=== PATIENT | female | born 1980 | race American Indian/Alaskan Native ===

== ENCOUNTER 2016-09-12 21:18 | Emergency (ER) | payer MEDICAID ==
[2016-09-12 23:06] LABS: Basophils % (Auto) 2.3 % (0.0-1.8); Eosinophils % (Auto) 7.3 % (0.0-4.3); Mean Corpuscular HGB Conc 29 % (30-34); Platelet Count 264 K/mm3 (140-440); Red Blood Count 5.23 M/mm3 (3.65-5.03)
[2016-09-12 23:09] LABS: Hematocrit 33.9 % (30.3-42.9); Hemoglobin 9.6 gm/dl (10.1-14.3)
[2016-09-12 23:10] LABS: Mean Corpuscular Hemoglobin 18 pg (28-32); Mean Corpuscular Volume 65 fl (79-97); Red Cell Distribution Width 20.9 % (13.2-15.2)
[2016-09-12 23:21] LABS: Anion Gap 17 mmol/L; BUN/Creatinine Ratio 16.15; Blood Urea Nitrogen 21 mg/dL (7-17); Calcium 8.8 mg/dL (8.4-10.2); Carbon Dioxide 25 mmol/L (22-30); Chloride 103.7 mmol/L (98-107); Glucose 101 mg/dL (65-100); Potassium 4.4 mmol/L (3.6-5.0); Sodium 141 mmol/L (137-145)
[2016-09-13] LABS: Bilirubin,Urine NEG (Negative); Blood,Urine NEG (Negative); Ketones,Urine NEG (Negative); Leukocyte Esterase,Urine NEG (Negative); Mucus,Urine FEW /HPF; Nitrite,Urine NEG (Negative); Urobilinogen,Urine < 2.0 mg/dL (<2.0)
[2016-09-13] MEDS ORDERED: TYLENOL ONE (01:54)
[2016-09-13] MEDS ORDERED: CATAPRES ONE (01:54)
[2016-09-13] MEDS ORDERED: TYLENOL PO ONE (02:00)
[2016-09-13] MEDS ORDERED: CATAPRES PO ONE (02:02)
--- NOTE | 2016-09-13 04:05 | Emergency Department Report ---
ED Chest Pain HPI - General Chief Complaint: Chest Pain Stated Complaint: CHEST PAIN Time Seen by Provider: 09/13/16 03:59 Source: patient Mode of arrival: Ambulatory Limitations: No Limitations - History of Present Illness Initial Comments: This is a pleasant 36-year-old female who is here to get her medications refilled. She states she's had increased pedal edema. She states that she's had weight gain as well. She has been told in the past that she has heart failure. She is concerned that she is putting out a lot of water weight. She does have a history of lap band. She reports she has lost weight in the internal from her lap band. She states that she started a new job in a couple weeks and will have access to healthcare again after she Job. She Reports Currently However Not Having Access to a Physician Due To Lack of Insurance. Patient Describes Occasional Chest Pains She Doesn't Currently Have Chest Pain. She Denies Any Specific Shortness of Breath. She Does Report However She Does Get Dyspneic with Exertion. She States This Is Nothing New though. Severity scale (0 -10): 5 - Related Data Previous Rx's Medication Instructions Recorded Last Taken Type Carvedilol [Coreg] 6.25 mg PO BID #60 tablet 09/13/16 Unknown Rx Hydrochlorothiazide [HCTZ] 50 mg PO QDAY #30 capsule 09/13/16 Unknown Rx Losartan [Cozaar] 100 mg PO QDAY #30 tablet 09/13/16 Unknown Rx Allergies Allergy/AdvReac Type Severity Reaction Status Date / Time prednisone Allergy Angioedema Verified 05/20/16 13:20 PINEDA score - Pineda Score Age > 65: (0) No Aspirin use within the Past 7 Days: (0) No 3 or more CAD Risk Factors: (0) No 2 or more Angina events in past 24 hrs: (0) No Known CAD with more than 50% Stenosis: (0) No Elevated Cardiac Markers: (0) No ST Deviation Greater than 0.5mm: (0) No PINEDA Score: 0 ED Review of Systems ROS: Stated complaint: CHEST PAIN Other details as noted in HPI Comment: All other systems reviewed and negative Constitutional: other (weight gain). denies: chills, fever Eyes: denies: eye pain, eye discharge, vision change ENT: denies: ear pain, throat pain Respiratory: denies: cough, shortness of breath, wheezing Cardiovascular: chest pain. denies: palpitations Endocrine: no symptoms reported Gastrointestinal: denies: abdominal pain, nausea, diarrhea Genitourinary: denies: urgency, dysuria, discharge Musculoskeletal: other (pedal edema). denies: back pain, joint swelling, arthralgia Skin: denies: rash, lesions Neurological: denies: headache, weakness, paresthesias Psychiatric: denies: anxiety, depression Hematological/Lymphatic: denies: easy bleeding, easy bruising ED Past Medical Hx - Past Medical History Hx Hypertension: Yes Additional medical history: Cardiomyopathy, Bronchitis - Surgical History Additional Surgical History: Lap Band - Social History Smoking Status: Former Smoker Substance Use Type: None - Medications Home Medications: Home Medications Medication Instructions Recorded Confirmed Last Taken Type Carvedilol [Coreg] 6.25 mg PO BID #60 tablet 09/13/16 Unknown Rx Hydrochlorothiazide [HCTZ] 50 mg PO QDAY #30 capsule 09/13/16 Unknown Rx Losartan [Cozaar] 100 mg PO QDAY #30 tablet 09/13/16 Unknown Rx ED Physical Exam - General Limitations: No Limitations General appearance: alert, in no apparent distress, obese - Head Head exam: Present: atraumatic, normocephalic - Eye Eye exam: Present: normal appearance, EOMI. Absent: scleral icterus - ENT ENT exam: Present: normal exam, normal orophraynx, mucous membranes moist - Neck Neck exam: Present: normal inspection, other (no jvd). Absent: tenderness, lymphadenopathy - Respiratory Respiratory exam: Present: normal lung sounds bilaterally. Absent: respiratory distress, wheezes, rales - Cardiovascular Cardiovascular Exam: Present: regular rate, normal rhythm. Absent: systolic murmur, diastolic murmur, rubs, gallop - GI/Abdominal GI/Abdominal exam: Present: soft, normal bowel sounds. Absent: tenderness, guarding - Extremities Exam Extremities exam: Present: normal inspection, pedal edema (1+ bilat. Equal distal pedal pulses bilat). Absent: tenderness, calf tenderness - Back Exam Back exam: Present: normal inspection. Absent: CVA tenderness (R), CVA tenderness (L) - Neurological Exam Neurological exam: Present: alert, oriented X3, normal gait - Psychiatric Psychiatric exam: Present: normal affect, normal mood - Skin Skin exam: Present: warm, dry, intact, normal color. Absent: rash ED Course Vital Signs 09/12/16 09/12/16 09/13/16 21:22 22:13 02:00 Temperature 97.4 F L 97.4 F L Pulse Rate 102 H 102 H 102 H Respiratory 22 22 Rate Blood Pressure 175/128 174/128 Blood Pressure 174/128 [Right] O2 Sat by Pulse 98 98 Oximetry 09/13/16 09/13/16 03:52 04:00 Temperature Pulse Rate 91 H 97 H Respiratory 22 16 Rate Blood Pressure 151/116 164/122 Blood Pressure [Right] O2 Sat by Pulse 100 Oximetry - Reevaluation(s) Reevaluation #1: 09/13/16 04:00 ECG at 2126 with normal sinus rhythm at 100 bpm with a normal TX and QRS. There is mild prolongation of QT of 497 ms. Dermal axis is noted nonspecific ST changes are noted otherwise unremarkable. Reevaluation #2: 09/13/16 05:30 This is a pleasant individual. I didn't evaluate her chest x-ray. There does appear to be cardiomegaly. No vascular congestion is appreciated. I feel she will benefit greatly from being on a diuretic. I did encourage her to increase her thyroid hydrochlorothiazide. She currently is not on Lasix. This is likely a good idea given her creatinine is slightly bumped. I did write for her other medications as well including a beta shay, carvedilol. Her ECG is noted. It is unremarkable. Enzymes here are noted and are negative. I do not have a great suspicion from a cardiac standpoint as far as ischemia is his presentation here today. She clearly seems to be presenting with a desire to get her medications and to get back on track rather than due to this specific chest pains. Safe for home. ED Medical Decision Making - Lab Data Result diagrams: 09/12/16 22:48 09/12/16 22:48 Critical care attestation.: If time is entered above; I have spent that time in minutes in the direct care of this critically ill patient, excluding procedure time. ED Disposition Clinical Impression: Renal insufficiency, Medication refill Congestive heart failure Qualifiers: Congestive heart failure type: systolic Congestive heart failure chronicity: acute on chronic Qualified Code(s): I50.23 - Acute on chronic systolic ( congestive) heart failure HTN (hypertension) Qualifiers: Hypertension type: essential hypertension Qualified Code(s): I10 - Essential ( primary) hypertension Disposition: DISCHARGED TO HOME OR SELFCARE Is pt being admited?: No Does the pt Need Aspirin: No Condition: Stable Instructions: Heart Failure (ED), Hypertension (ED) Prescriptions: Carvedilol [Coreg] 6.25 mg PO BID #60 tablet Hydrochlorothiazide [HCTZ] 50 mg PO QDAY #30 capsule Losartan [Cozaar] 100 mg PO QDAY #30 tablet Referrals: NELY MOY MD [Staff Physician] - 3-5 Days [facility] [Provider Group] - 3-5 Days [facility] [Provider Group] - 3-5 Days Time of Disposition: 04:11
[2016-09-13] MEDS ORDERED: LASIX IV ONE (04:08)
[2016-09-13 04:09] VITALS: BP 164/122
--- NOTE | 2016-09-13 09:50 | XRay Report ---
CHEST 2 VIEWS INDICATION: Shortness of breath, cough, edema. COMPARISON: 05/20/2016 FINDINGS: PA and lateral chest radiographs again demonstrate mild to moderate cardiomegaly and slight fluid or thickening along the fissures. No large pleural effusions or CHF however. Stable bones. CONCLUSION: Cardiomegaly again noted, as described. Thank you for the opportunity to participate in this patient's care.
== END 2016-09-13 04:45 | disposition home or self-care (01) ==
LOC: ED 21:18
DX: N28.9 Disorder of kidney and ureter, unspecified (principal); Z76.0 Encounter for issue of repeat prescription; I50.23 Acute on chronic systolic (congestive) heart failure; I10 Essential (primary) hypertension; Z87.891 Personal history of nicotine dependence; Z88.8 Allergy status to other drugs, medicaments and biological substances
CPT/HCPCS: 36415; 71020; 80048; 81001; 81025; 83880; 84484; 85025; 93005; 93010; 96374; 99285; J1940

== ENCOUNTER 2016-11-15 22:57 | Emergency (ER) | payer MEDICAID ==
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
[2016-11-16 02:38] VITALS: BP 153/106
== END 2016-11-16 02:38 | disposition home or self-care (01) ==
LOC: ED 22:57
DX: M25.511 Pain in right shoulder (principal); M54.2 Cervicalgia; I10 Essential (primary) hypertension; E66.9 Obesity, unspecified; Z88.8 Allergy status to other drugs, medicaments and biological substances; V89.2XXA Person injured in unspecified motor-vehicle accident, traffic, initial encounter; Y93.9 Activity, unspecified; Y99.9 Unspecified external cause status; Y92.410 Unspecified street and highway as the place of occurrence of the external cause
CPT/HCPCS: 72125

== ENCOUNTER 2018-09-12 14:07 | Inpatient (IN) | payer MEDICAID ==
--- NOTE | 2018-09-12 14:40 | Emergency Department Report ---
Chief Complaint: Dyspnea/Respdistress Stated Complaint: SOB/SWOLLEN/OUT OF MEDS Time Seen by Provider: 09/12/18 14:40 - HPI History of Present Illness: HX CM P EF UNKNOWN NOT IN EMR OUT OF MEDS NOW WITH SOB AND SWELLING MSE COMPLETED MSE screening note: Focused history and physical exam performed. Due to findings the following was ordered: ED Disposition for MSE Condition: Stable
[2018-09-12 15:25] LABS: Basophils # (Auto) 0.1 K/mm3 (0.0-0.1); Basophils % (Auto) 1.2 % (0.0-1.8); Eosinophils # (Auto) 0.2 K/mm3 (0.0-0.4); Eosinophils % (Auto) 3.1 % (0.0-4.3); Lymphocytes # (Auto) 1.4 K/mm3 (1.2-5.4); Lymphocytes % (Auto) 23.1 % (13.4-35.0); Mean Corpuscular HGB Conc 29 % (30-34); Monocytes # (Auto) 0.4 K/mm3 (0.0-0.8); Monocytes % (Auto) 7.3 % (0.0-7.3); Platelet Count 355 K/mm3 (140-440); Red Blood Count 4.74 M/mm3 (3.65-5.03)
[2018-09-12 15:27] LABS: Hematocrit 29.6 % (30.3-42.9); Hemoglobin 8.5 gm/dl (10.1-14.3); Mean Corpuscular Volume 63 fl (79-97); Red Cell Distribution Width 21.9 % (13.2-15.2)
[2018-09-12 15:45] LABS: Alanine Aminotransferase 23 units/L (7-56); Albumin 3.6 g/dL (3.9-5); BUN/Creatinine Ratio 14; Blood Urea Nitrogen 17 mg/dL (7-17); Calcium 8.7 mg/dL (8.4-10.2); Hemolysis Index 0
[2018-09-12] MEDS ORDERED: LASIX IV ONE (16:41)
[2018-09-12] MEDS ORDERED: NITRO-BID 2% TP ONE (16:41)
--- NOTE | 2018-09-12 16:47 | Emergency Department Report ---
ED Shortness of Breath HPI - General Chief Complaint: Dyspnea/Respdistress Stated Complaint: SOB/SWOLLEN/OUT OF MEDS Time Seen by Provider: 09/12/18 14:40 Source: patient Mode of arrival: Ambulatory Limitations: No Limitations - History of Present Illness Initial Comments: Patient is a 38-year-old Female with a past history of cardiomyopathy (medically controlled with antihypertensives for the past 8 years) and hypertension who is presenting with shortness of breath for the last 2 weeks. Patient says she is short of breath with lying flat as well as exertion. Patient states that this is progressively worsening over the last 2 weeks. Patient also is complaining of some bilateral lower extremity swelling and abdominal distention as well. Patient describes some chest discomfort that she states is tight sensation which is constant. Patient's chest discomfort is worse with exertion as well. Patient denies any cough cold congestion fevers chills nausea vomiting at this time. patient ran out of her medications 2-3 weeks ago. - Related Data Previous Rx's Medication Instructions Recorded Last Taken Type Carvedilol [Coreg] 6.25 mg PO BID #60 tablet 11/16/16 Unknown Rx Cyclobenzaprine [Flexeril] 10 mg PO TID PRN #12 tablet 11/16/16 Unknown Rx Losartan [Cozaar] 100 mg PO QDAY #30 tablet 11/16/16 Unknown Rx Naproxen [Naprosyn TAB] 500 mg PO BID PRN #20 tablet 11/16/16 Unknown Rx hydroCHLOROthiazide [HCTZ] 50 mg PO QDAY #30 capsule 11/16/16 Unknown Rx ALBUTEROL Inhaler(NF) [VENTOLIN 2 puff IH Q4H PRN #1 inha 04/03/18 Unknown Rx Inhaler(NF)] Azithromycin 250 mg PO DAILY #6 tablet 04/03/18 Unknown Rx Benzonatate [Tessalon Perles] 100 mg PO Q8HR PRN #30 capsule 04/03/18 Unknown Rx Carvedilol 6.25 mg PO BID #60 tablet 04/03/18 Unknown Rx Dexamethasone [Decadron] 4 mg PO BID #6 tablet 04/03/18 Unknown Rx Ibuprofen 800 mg PO TID PRN #30 tablet 04/03/18 Unknown Rx Losartan [Cozaar] 100 mg PO QDAY #30 tablet 04/03/18 Unknown Rx hydroCHLOROthiazide [HCTZ] 50 mg PO DAILY #60 tablet 04/03/18 Unknown Rx Allergies Allergy/AdvReac Type Severity Reaction Status Date / Time prednisone Allergy Angioedema Verified 09/12/18 14:41 ED Review of Systems ROS: Stated complaint: SOB/SWOLLEN/OUT OF MEDS Other details as noted in HPI Comment: All other systems reviewed and negative ED Past Medical Hx - Past Medical History Previous Medical History?: Yes Hx Hypertension: Yes Additional medical history: Cardiomyopathy, Bronchitis. Obesity - Surgical History Past Surgical History?: Yes Additional Surgical History: Lap Band. Breast Reduction - Social History Smoking Status: Never Smoker Substance Use Type: None - Medications Home Medications: Home Medications Medication Instructions Recorded Confirmed Last Taken Type Carvedilol [Coreg] 6.25 mg PO BID #60 tablet 11/16/16 Unknown Rx Cyclobenzaprine [Flexeril] 10 mg PO TID PRN #12 tablet 11/16/16 Unknown Rx Losartan [Cozaar] 100 mg PO QDAY #30 tablet 11/16/16 Unknown Rx Naproxen [Naprosyn TAB] 500 mg PO BID PRN #20 tablet 11/16/16 Unknown Rx hydroCHLOROthiazide [HCTZ] 50 mg PO QDAY #30 capsule 11/16/16 Unknown Rx ALBUTEROL Inhaler(NF) [VENTOLIN 2 puff IH Q4H PRN #1 inha 04/03/18 Unknown Rx Inhaler(NF)] Azithromycin 250 mg PO DAILY #6 tablet 04/03/18 Unknown Rx Benzonatate [Tessalon Perles] 100 mg PO Q8HR PRN #30 capsule 04/03/18 Unknown Rx Carvedilol 6.25 mg PO BID #60 tablet 04/03/18 Unknown Rx Dexamethasone [Decadron] 4 mg PO BID #6 tablet 04/03/18 Unknown Rx Ibuprofen 800 mg PO TID PRN #30 tablet 04/03/18 Unknown Rx Losartan [Cozaar] 100 mg PO QDAY #30 tablet 04/03/18 Unknown Rx hydroCHLOROthiazide [HCTZ] 50 mg PO DAILY #60 tablet 04/03/18 Unknown Rx ED Physical Exam - General Limitations: No Limitations General appearance: alert, in no apparent distress - Head Head exam: Present: atraumatic, normocephalic - Eye Eye exam: Present: normal appearance - ENT ENT exam: Present: mucous membranes moist - Neck Neck exam: Present: normal inspection - Respiratory Respiratory exam: Present: normal lung sounds bilaterally, rales. Absent: respiratory distress, wheezes, rhonchi, stridor - Cardiovascular Cardiovascular Exam: Present: regular rate, normal rhythm. Absent: systolic murmur, diastolic murmur, rubs, gallop - GI/Abdominal GI/Abdominal exam: Present: soft, distended, normal bowel sounds. Absent: tenderness, guarding, rebound, rigid - Extremities Exam Extremities exam: Present: normal inspection, other (3+ bilateral lower extremity edema.) - Back Exam Back exam: Present: normal inspection - Neurological Exam Neurological exam: Present: alert, oriented X3 - Psychiatric Psychiatric exam: Present: normal affect, normal mood - Skin Skin exam: Present: warm, dry, intact, normal color. Absent: rash ED Course Vital Signs 09/12/18 14:38 Temperature 98.6 F Pulse Rate 98 H Respiratory 22 Rate Blood Pressure 174/123 O2 Sat by Pulse 99 Oximetry ED Medical Decision Making - Lab Data Result diagrams: 09/12/18 15:04 09/12/18 15:04 Lab Results 09/12/18 09/12/18 09/12/18 Range/Units 15:04 15:04 15:04 WBC 6.0 (4.5-11.0) K/mm3 RBC 4.74 (3.65-5.03) M/mm3 Hgb 8.5 L (10.1-14.3) gm/dl Hct 29.6 L (30.3-42.9) % MCV 63 L (79-97) fl MCH 18 L (28-32) pg MCHC 29 L (30-34) % RDW 21.9 H (13.2-15.2) % Plt Count 355 (140-440) K/mm3 Lymph % (Auto) 23.1 (13.4-35.0) % [place] % (Auto) 7.3 (0.0-7.3) % Eos % (Auto) 3.1 (0.0-4.3) % Baso % (Auto) 1.2 (0.0-1.8) % Lymph # 1.4 (1.2-5.4) K/mm3 [place] # 0.4 (0.0-0.8) K/mm3 Eos # 0.2 (0.0-0.4) K/mm3 Baso # 0.1 (0.0-0.1) K/mm3 Seg Neutrophils % 65.3 (40.0-70.0) % Seg Neutrophils # 3.9 (1.8-7.7) K/mm3 Sodium 140 (137-145) mmol/L Potassium 4.1 (3.6-5.0) mmol/L Chloride 107.1 H (98-107) mmol/L Carbon Dioxide 24 (22-30) mmol/L Anion Gap 13 mmol/L BUN 17 (7-17) mg/dL Creatinine 1.2 (0.7-1.2) mg/dL Estimated GFR > 60 ml/min BUN/Creatinine Ratio 14 % Glucose 102 H (65-100) mg/dL Calcium 8.7 (8.4-10.2) mg/dL Total Bilirubin 0.40 (0.1-1.2) mg/dL AST 20 (5-40) units/L ALT 23 (7-56) units/L Alkaline Phosphatase 44 (35-129) units/L Troponin T < 0.010 (0.00-0.029) ng/mL NT-Pro-B Natriuret Pep 2083 H (0-450) pg/mL Total Protein 6.5 (6.3-8.2) g/dL Albumin 3.6 L (3.9-5) g/dL Albumin/Globulin Ratio 1.2 % - EKG Data -: EKG Interpreted by Nh - EKG Data 09/12/18 16:44 EKG shows a sinus rhythm rate of 96 axis is normal intervals and normal there is evidence of LVH. There is no ST elevation or depressions present. Time of interpretation 1500 - Medical Decision Making Patient is a 38-year-old [place] female with a past history of cardiomyopathy that has been well-controlled for the last 8 years on antihypertensive medications was presented with a exacerbation of her cardiomyopathy. Patient's with rails and shortness of breath with exertion. Patient's blood pressures elevated at this time. Patient was given nitro paste for her chest discomfort. Troponin is negative. BNP is elevated at greater than 2000. Patient given 40 of Lasix and the patient will be admitted to the hospitalist service at this time. Critical care attestation.: If time is entered above; I have spent that time in minutes in the direct care of this critically ill patient, excluding procedure time. ED Disposition Clinical Impression: Hypertensive emergency CHF exacerbation Qualifiers: Heart failure type: unspecified Qualified Code(s): I50.9 - Heart failure, unspecified Chest pain Qualifiers: Chest pain type: unspecified Qualified Code(s): R07.9 - Chest pain, unspecified Disposition: OP ADMIT IP TO THIS HOSP Is pt being admited?: Yes Does the pt Need Aspirin: No Condition: Stable Time of Disposition: 16:49
[2018-09-12] MEDS ORDERED: ASPIRIN PO ONE (16:49)
--- NOTE | 2018-09-12 17:32 | History and Physical Report ---
History of Present Illness Chief complaint: Im short of breath, and I ran out of my heart pills. History of present illness: 38 YO Female with MO, HTN, Cardiomyopathy, Bronchitis presents to ED for evaluation. Pt states that she has experienced shortness of breath over the past 2 weeks, with progressively worsening symptoms over the same time frame. Pt acknowledges Orthopnea/PND, Decreased exercise tolerance, lower extremitiy edema, Dypsnea on exertion, and dypsnea at rest. Pt also acknowledges medication noncompliance over the past 2 weeks. Pt also acknowledges feeling depressed, helpless, and hopeless. Pt is tearful but consolable. Pt denies SI/HI or Plan. Pt acknowledges feeling frustrated with her health. Pt transported to [facility] ED via private vehicle. Pt seen and evaluated in ED and found to have symptoms consistent with CHF, Depression, and Symptomatic Anemia. Cardiology consulted in ED. Pt admitted to telemetry and initiated on CHF protocol. No prior admissions for review. All listed medication reconciled at time of admission. Past History Past Medical History: hypertension, other (MO, Cardiomyopathy, Bronchitis) Past Surgical History: bowel surgery, Other (Breast reduction) Social history: single. denies: smoking, alcohol abuse, prescription drug abuse Family history: hypertension Medications and Allergies Allergies Allergy/AdvReac Type Severity Reaction Status Date / Time prednisone Allergy Angioedema Verified 09/12/18 14:41 Home Medications Medication Instructions Recorded Confirmed Last Taken Type Carvedilol [Coreg] 6.25 mg PO BID #60 tablet 11/16/16 Unknown Rx Cyclobenzaprine [Flexeril] 10 mg PO TID PRN #12 tablet 11/16/16 Unknown Rx Losartan [Cozaar] 100 mg PO QDAY #30 tablet 11/16/16 Unknown Rx Naproxen [Naprosyn TAB] 500 mg PO BID PRN #20 tablet 11/16/16 Unknown Rx hydroCHLOROthiazide [HCTZ] 50 mg PO QDAY #30 capsule 11/16/16 Unknown Rx ALBUTEROL Inhaler(NF) [VENTOLIN 2 puff IH Q4H PRN #1 inha 04/03/18 Unknown Rx Inhaler(NF)] Azithromycin 250 mg PO DAILY #6 tablet 04/03/18 Unknown Rx Benzonatate [Tessalon Perles] 100 mg PO Q8HR PRN #30 capsule 04/03/18 Unknown Rx Carvedilol 6.25 mg PO BID #60 tablet 04/03/18 Unknown Rx Dexamethasone [Decadron] 4 mg PO BID #6 tablet 04/03/18 Unknown Rx Ibuprofen 800 mg PO TID PRN #30 tablet 04/03/18 Unknown Rx Losartan [Cozaar] 100 mg PO QDAY #30 tablet 04/03/18 Unknown Rx hydroCHLOROthiazide [HCTZ] 50 mg PO DAILY #60 tablet 04/03/18 Unknown Rx Review of Systems Constitutional: no weight loss, no weight gain, no fever, no chills Ears, nose, mouth and throat: no ear pain, no ear discharge, no tinnitis, no decreased hearing, no nose pain Cardiovascular: orthopnea, shortness of breath, dyspnea on exertion, paroxysmal nocturnal dyspnea, leg edema, decreased exercise tolerance, no chest pain, no palpitations, no rapid/irregular heart beat Respiratory: no cough, no cough with sputum, no excessive sputum, no hemoptysis Gastrointestinal: no nausea, no vomiting, no diarrhea, no constipation, no hematemesis Genitourinary Female: no pelvic pain, no flank pain, no menorrhagia, no dysuria, no urinary frequency Rectal: no pain, no incontinence, no bleeding Musculoskeletal: no neck stiffness, no neck pain, no shooting arm pain, no arm numbness/tingling, no low back pain, no shooting leg pain Integumentary: no rash, no pruritis, no redness, no sores, no wounds Neurological: no paralysis, no weakness, no parathesias, no numbness, no tingling, no seizures Psychiatric: depression, hopelessness, mood swings, no suicidal ideation Endocrine: no cold intolerance, no heat intolerance, no polyphagia, no excessive thirst, no polydipsia, no polyuria, no nocturia, no weight change Hematologic/Lymphatic: no easy bleeding Allergic/Immunologic: no urticaria, no allergic rhinitis, no wheezing Exam - Constitutional Vitals: Temp Pulse Resp BP Pulse Ox 98.6 F 94 H 22 151/105 99 09/12/18 14:38 09/12/18 16:52 09/12/18 14:38 09/12/18 16:52 09/12/18 14:38 General appearance: Present: mild distress, obese - EENT Eyes: Present: PERRL ENT: hearing intact, clear oral mucosa - Neck Neck: Present: supple, normal ROM - Respiratory Respiratory effort: normal Respiratory: bilateral: CTA - Cardiovascular Heart Sounds: Present: S1 & S2. Absent: rub, click - Extremities Extremities: pulses symmetrical, No edema Peripheral Pulses: within normal limits - Abdominal General gastrointestinal: Present: soft, non-tender, non-distended, normal bowel sounds Female genitourinary: Present: normal - Integumentary Integumentary: Present: clear, warm, dry - Musculoskeletal Musculoskeletal: gait normal, strength equal bilaterally - Psychiatric Psychiatric: appropriate mood/affect, intact judgment & insight, memory intact, depressed - Neurologic Neurologic: CNII-XII intact, moves all extremities, gait normal Results - Labs CBC & Chem 7: 09/12/18 15:04 09/12/18 15:04 Labs: Abnormal lab results 09/12/18 09/12/18 09/12/18 Range/Units 15:04 15:04 15:04 Hgb 8.5 L (10.1-14.3) gm/dl Hct 29.6 L (30.3-42.9) % MCV 63 L (79-97) fl MCH 18 L (28-32) pg MCHC 29 L (30-34) % RDW 21.9 H (13.2-15.2) % Chloride 107.1 H (98-107) mmol/L Glucose 102 H (65-100) mg/dL NT-Pro-B Natriuret Pep 2083 H (0-450) pg/mL Albumin 3.6 L (3.9-5) g/dL Assessment and Plan - Patient Problems (1) CHF exacerbation Current Visit: Yes Status: Acute Qualifiers: Heart failure type: systolic Qualified Code(s): I50.23 - Acute on chronic systolic (congestive) heart failure Plan to address problem: CHF Protocol: Admit to telemetry, Strict I/O, daily weight, monitor uop q shift, Cardiology consulted in ED, BNP, Echo, thyroid panel, magnesium level. (2) Iron deficiency anemia Current Visit: Yes Status: Acute Qualifiers: Iron deficiency anemia type: unspecified iron deficiency Qualified Code(s): D50.9 - Iron deficiency anemia, unspecified Plan to address problem: Iron replacement therapy, Bowel regimen for constipation, supportive care. Pt counseled regarding medication compliance. (3) Depression Current Visit: Yes Status: Acute Qualifiers: Depression Type: unspecified Qualified Code(s): F32.9 - Major depressive disorder, single episode, unspecified Plan to address problem: Mental health consulted. Pt denies SI/HI or plan to harm herself or others. (4) HTN (hypertension) Current Visit: Yes Status: Acute Qualifiers: Hypertension type: essential hypertension Qualified Code(s): I10 - Essential (primary) hypertension Plan to address problem: Monitor BP q shift, resume prehosptial therapy. (5) DVT prophylaxis Current Visit: Yes Status: Acute Plan to address problem: SCD to BLE while in bed. Prophylactic lovenox
[2018-09-12] MEDS ORDERED: NAPROSYN PO PRN (17:34)
[2018-09-12] MEDS ORDERED: TESSALON PERLES PO PRN (17:34)
[2018-09-12] MEDS ORDERED: PROVENTIL IH PRN (17:36)
[2018-09-12] MEDS ORDERED: ZOFRAN IV PRN (17:36)
[2018-09-12] MEDS ORDERED: TYLENOL PO PRN (17:36)
[2018-09-12] MEDS ORDERED: SODIUM CHLORIDE FLUSH SYRINGE 10 ML IV PRN (17:36)
[2018-09-12] MEDS ORDERED: LASIX IV SCH (18:00)
[2018-09-12] MEDS: SENOKOT S PO ONE ×2 (18:43→21:42)
[2018-09-12] MEDS: FEOSOL PO SCH ×2 (18:44→22:01)
[2018-09-12] MEDS ORDERED: HCTZ ONE (18:56)
[2018-09-12] MEDS ORDERED: ZOFRAN ONE (19:00)
[2018-09-12 19:02] LABS: Free T4 (Free Thyroxine) 1.43 ng/dL (0.76-1.46)
[2018-09-12] MEDS: HCTZ PO SCH (19:02)
--- NOTE | 2018-09-12 19:06 | XRay Report ---
PROCEDURE: XR CHEST ROUTINE 2V TECHNIQUE: PA and lateral radiographs of the chest obtained. HISTORY: Dyspnea COMPARISONS: 04/03/2018. FINDINGS: Heart is mildly enlarged. No focal consolidation or effusion visualized. No pneumothorax visualized. IMPRESSION: Mild cardiomegaly.. This document is electronically signed by Leyda Eason MD., September 12 2018 07:04:21 PM ET
[2018-09-12] MEDS ORDERED: COZAAR ONE (20:01)
[2018-09-12] MEDS: COZAAR PO SCH (20:06)
[2018-09-12] MEDS ORDERED: TYLENOL ONE (22:34)
[2018-09-12] MEDS ORDERED: DECADRON ONE (22:34)
[2018-09-12] MEDS ORDERED: LOVENOX SUB-Q ONE (22:34)
[2018-09-12] MEDS ORDERED: COREG ONE (22:35)
[2018-09-12] MEDS: SODIUM CHLORIDE FLUSH SYRINGE 10 ML IV SCH (22:37)
[2018-09-12] MEDS: DECADRON PO SCH (22:37)
[2018-09-12] MEDS: COREG PO SCH (22:37)
[2018-09-12] MEDS: LOVENOX SUB-Q SCH (22:37)
[2018-09-13 05:27] LABS: BUN/Creatinine Ratio 13; Blood Urea Nitrogen 15 mg/dL (7-17); Calcium 9.2 mg/dL (8.4-10.2); Hemolysis Index 4
[2018-09-13 06:13] LABS: HCG Qualitative,Urine Negative (Negative)
[2018-09-13] MEDS ORDERED: LASIX ONE (06:14)
[2018-09-13] MEDS: LASIX IV SCH ×2 (06:18→18:38)
[2018-09-13 06:48] LABS: Bacteria,Urine 1+ /HPF (Negative); Bilirubin,Urine NEG (Negative); Blood,Urine NEG (Negative); Color,Urine Yellow (Yellow); Mucus,Urine FEW /HPF; Protein,Urine <15 mg/dL mg/dL (Negative)
[2018-09-13] MEDS ORDERED: NON-FORMULARY (Losartan [Cozaar] 100 MG) PO SCH (10:00)
[2018-09-13] MEDS ORDERED: HCTZ PO SCH ×2 (10:00)
--- NOTE | 2018-09-13 10:46 | Consultation ---
Past History Past Medical History: hypertension, other (MO, Cardiomyopathy, Bronchitis) Past Surgical History: bowel surgery, Other (Breast reduction) Social history: single. denies: smoking, alcohol abuse, prescription drug abuse Family history: hypertension Medications and Allergies Allergies Allergy/AdvReac Type Severity Reaction Status Date / Time prednisone Allergy Angioedema Verified 09/12/18 14:41 Home Medications Medication Instructions Recorded Confirmed Last Taken Type Carvedilol [Coreg] 6.25 mg PO BID #60 tablet 11/16/16 09/13/18 Unknown Rx Naproxen [Naprosyn TAB] 500 mg PO BID PRN #20 tablet 11/16/16 09/13/18 Unknown Rx ALBUTEROL Inhaler(NF) [VENTOLIN 2 puff IH Q4H PRN #1 inha 04/03/18 09/13/18 Unknown Rx Inhaler(NF)] Benzonatate [Tessalon Perles] 100 mg PO Q8HR PRN #30 capsule 04/03/18 09/13/18 Unknown Rx Losartan [Cozaar] 100 mg PO QDAY #30 tablet 04/03/18 09/13/18 Unknown Rx hydroCHLOROthiazide [HCTZ] 50 mg PO DAILY #60 tablet 04/03/18 09/13/18 Unknown Rx Active Meds: Active Medications Acetaminophen (Tylenol) 650 mg PO Q4H PRN PRN Reason: Pain MILD(1-3)/Fever >100.5/BETANCOURT Albuterol (Proventil) 2.5 mg IH Q4H PRN PRN Reason: Shortness Of Breath Benzonatate (Tessalon Perles) 100 mg PO Q8HR PRN PRN Reason: Cough Carvedilol (Coreg) 6.25 mg PO BID [facility] Last Admin: 09/12/18 22:37 Dose: 6.25 mg Documented by: Cyclobenzaprine HCl (Flexeril) 10 mg PO TID PRN PRN Reason: Muscle Spasm Dexamethasone (Decadron) 4 mg PO BID [facility] Last Admin: 09/12/18 22:37 Dose: 4 mg Documented by: Enoxaparin Sodium (Lovenox) 40 mg SUB-Q QDAY@2200 [facility] Last Admin: 09/12/18 22:37 Dose: 40 mg Documented by: Ferrous Sulfate (Feosol) 325 mg PO BID [facility] Last Admin: 09/12/18 22:01 Dose: Not Given Documented by: Furosemide (Lasix) 20 mg IV BID@0600,1800 [facility] Last Admin: 09/13/18 06:18 Dose: 20 mg Documented by: Hydrochlorothiazide (Hctz) 50 mg PO DAILY [facility] Last Admin: 09/12/18 19:02 Dose: 50 mg Documented by: Losartan Potassium (Cozaar) 100 mg PO QDAY [facility] Last Admin: 09/12/18 20:06 Dose: 100 mg Documented by: Ondansetron HCl (Zofran) 4 mg IV Q8H PRN PRN Reason: Nausea And Vomiting Sodium Chloride (Sodium Chloride Flush Syringe 10 Ml) 10 ml IV BID [facility] Last Admin: 09/12/18 22:37 Dose: 10 ml Documented by: Sodium Chloride (Sodium Chloride Flush Syringe 10 Ml) 10 ml IV PRN PRN PRN Reason: LINE FLUSH Physical Examination Vital Signs Temp Pulse Resp BP Pulse Ox 98.6 F 98 H 22 174/123 99 09/12/18 14:38 09/12/18 14:38 09/12/18 14:38 09/12/18 14:38 09/12/18 14:38 Results 09/12/18 15:04 09/13/18 04:18 Cardiac Enzymes 09/12/18 Range/Units 15:04 AST 20 (5-40) units/L CBC 09/12/18 Range/Units 15:04 WBC 6.0 (4.5-11.0) K/mm3 RBC 4.74 (3.65-5.03) M/mm3 Hgb 8.5 L (10.1-14.3) gm/dl Hct 29.6 L (30.3-42.9) % Plt Count 355 (140-440) K/mm3 Lymph # 1.4 (1.2-5.4) K/mm3 [place] # 0.4 (0.0-0.8) K/mm3 Eos # 0.2 (0.0-0.4) K/mm3 Baso # 0.1 (0.0-0.1) K/mm3 Comprehensive Metabolic Panel 09/12/18 09/13/18 Range/Units 15:04 04:18 Sodium 140 140 (137-145) mmol/L Potassium 4.1 4.0 (3.6-5.0) mmol/L Chloride 107.1 H 102.2 (98-107) mmol/L Carbon Dioxide 24 24 (22-30) mmol/L BUN 17 15 (7-17) mg/dL Creatinine 1.2 1.2 (0.7-1.2) mg/dL Glucose 102 H 102 H (65-100) mg/dL Calcium 8.7 9.2 (8.4-10.2) mg/dL AST 20 (5-40) units/L ALT 23 (7-56) units/L Alkaline Phosphatase 44 (35-129) units/L Total Protein 6.5 (6.3-8.2) g/dL Albumin 3.6 L (3.9-5) g/dL Assessment and Plan full consult dictated thx
--- NOTE | 2018-09-13 13:41 | Progress Note ---
Assessment and Plan Assessment and plan: 38 YO Female with MO, HTN, Cardiomyopathy, Bronchitis presents to ED for evaluation. Pt states that she has experienced shortness of breath over the past 2 weeks, with progressively worsening symptoms over the same time frame. Pt acknowledges Orthopnea/PND, Decreased exercise tolerance, lower extremitiy edema, Dypsnea on exertion, and dypsnea at rest. Pt also acknowledges medication noncompliance over the past 2 weeks. Pt also acknowledges feeling depressed, helpless, and hopeless. Pt is tearful but consolable. Pt denies SI/HI or Plan. Pt acknowledges feeling frustrated with her health. Pt transported to [facility] ED via private vehicle. Pt seen and evaluated in ED and found to have symptoms consistent with CHF, Depression, and Symptomatic Anemia. Cardiology consulted in ED. Pt admitted to telemetry and initiated on CHF protocol. No prior admissions for review. All listed medication reconciled at time of admission. Patient HX gestational cardiomyopathy. - Patient Problems (1) CHF exacerbation Current Visit: Yes Status: Acute Qualifiers: Heart failure type: systolic Qualified Code(s): I50.23 - Acute on chronic systolic (congestive) heart failure Plan to address problem: CHF Protocol: Strict I/O, daily weight, monitor uop q shift, BNP, Echo, thyroid panel, magnesium level. Cardiology input noted; Restarted on Home meds Plan for discharge in AM as patient continues to improve. (2) Iron deficiency anemia Current Visit: Yes Status: Acute Qualifiers: Iron deficiency anemia type: unspecified iron deficiency Qualified Code(s): D50.9 - Iron deficiency anemia, unspecified Plan to address problem: Iron replacement therapy, Bowel regimen for constipation, supportive care. Pt counseled regarding medication compliance. (3) Depression Current Visit: Yes Status: Acute Qualifiers: Depression Type: unspecified Qualified Code(s): F32.9 - Major depressive disorder, single episode, unspecified Plan to address problem: Mental health consulted. Pt denies SI/HI or plan to harm herself or others. (4) HTN (hypertension) Current Visit: Yes Status: Acute Qualifiers: Hypertension type: essential hypertension Qualified Code(s): I10 - Essential (primary) hypertension Plan to address problem: Monitor BP q shift, resume prehosptial therapy. (5) DVT prophylaxis Current Visit: Yes Status: Acute Plan to address problem: SCD to BLE while in bed. Prophylactic lovenox History Interval history: Patient seen and examined 6 in upper postoperative much better no further was no shortness of breath but not yet at her baseline. Hospitalist Physical - Physical exam Narrative exam: VITAL SIGNS: Reviewed. GENERAL: The patient appeared well nourished and normally developed, morbidly obese Vital signs as documented. HEAD: No signs of head trauma. EYES: Pupils are equal. Extraocular motions intact. EARS: Hearing grossly intact. MOUTH: Oropharynx is normal. NECK: No adenopathy, no JVD. CHEST: Chest with clear breath sounds bilaterally. No wheezes, rales, or rhonchi. CARDIAC: Regular rate and rhythm. S1 and S2, without murmurs, gallops, or rubs. VASCULAR: No Edema. Peripheral pulses normal and equal in all extremities. ABDOMEN: Soft, non tender and non distended. No rebound or guarding, and no masses palpated. Bowel Sounds normal. MUSCULOSKELETAL: Good range of motion of all major joints. Extremities without clubbing, cyanosis or edema. NEUROLOGIC EXAM: Alert and oriented x 3 No focal sensory or strength deficits. Speech normal. Follows commands. PSYCHIATRIC: Mood normal. SKIN: No rash or lesions. - Constitutional Vitals: Temp Pulse Resp BP Pulse Ox 98.6 F 87 29 H 131/95 95 09/12/18 14:38 09/13/18 00:00 09/13/18 00:00 09/13/18 08:00 09/13/18 08:00 General appearance: Present: mild distress, obese Results - Labs CBC & Chem 7: 09/14/18 05:23 09/14/18 05:23 Labs: Laboratory Last Values WBC 6.0 K/mm3 (4.5-11.0) 09/12/18 15:04 RBC 4.74 M/mm3 (3.65-5.03) 09/12/18 15:04 Hgb 8.5 gm/dl (10.1-14.3) L 09/12/18 15:04 Hct 29.6 % (30.3-42.9) L 09/12/18 15:04 MCV 63 fl (79-97) L 09/12/18 15:04 MCH 18 pg (28-32) L 09/12/18 15:04 MCHC 29 % (30-34) L 09/12/18 15:04 RDW 21.9 % (13.2-15.2) H 09/12/18 15:04 Plt Count 355 K/mm3 (140-440) 09/12/18 15:04 Lymph % (Auto) 23.1 % (13.4-35.0) 09/12/18 15:04 [place] % (Auto) 7.3 % (0.0-7.3) 09/12/18 15:04 Eos % (Auto) 3.1 % (0.0-4.3) 09/12/18 15:04 Baso % (Auto) 1.2 % (0.0-1.8) 09/12/18 15:04 Lymph # 1.4 K/mm3 (1.2-5.4) 09/12/18 15:04 [place] # 0.4 K/mm3 (0.0-0.8) 09/12/18 15:04 Eos # 0.2 K/mm3 (0.0-0.4) 09/12/18 15:04 Baso # 0.1 K/mm3 (0.0-0.1) 09/12/18 15:04 Seg Neutrophils % 65.3 % (40.0-70.0) 09/12/18 15:04 Seg Neutrophils # 3.9 K/mm3 (1.8-7.7) 09/12/18 15:04 Sodium 140 mmol/L (137-145) 09/13/18 04:18 Potassium 4.0 mmol/L (3.6-5.0) 09/13/18 04:18 Chloride 102.2 mmol/L (98-107) 09/13/18 04:18 Carbon Dioxide 24 mmol/L (22-30) 09/13/18 04:18 Anion Gap 18 mmol/L 09/13/18 04:18 BUN 15 mg/dL (7-17) 09/13/18 04:18 Creatinine 1.2 mg/dL (0.7-1.2) 09/13/18 04:18 Estimated GFR > 60 ml/min 09/13/18 04:18 BUN/Creatinine Ratio 13 % 09/13/18 04:18 Glucose 102 mg/dL (65-100) H 09/13/18 04:18 Calcium 9.2 mg/dL (8.4-10.2) 09/13/18 04:18 Magnesium 1.70 mg/dL (1.7-2.3) 09/12/18 17:58 Total Bilirubin 0.40 mg/dL (0.1-1.2) 09/12/18 15:04 AST 20 units/L (5-40) 09/12/18 15:04 ALT 23 units/L (7-56) 09/12/18 15:04 Alkaline Phosphatase 44 units/L (35-129) 09/12/18 15:04 Troponin T < 0.010 ng/mL (0.00-0.029) 09/12/18 15:04 NT-Pro-B Natriuret Pep 2083 pg/mL (0-450) H 09/12/18 15:04 Total Protein 6.5 g/dL (6.3-8.2) 09/12/18 15:04 Albumin 3.6 g/dL (3.9-5) L 09/12/18 15:04 Albumin/Globulin Ratio 1.2 % 09/12/18 15:04 TSH 0.852 mlU/mL (0.270-4.200) 09/12/18 17:58 Free T4 1.43 ng/dL (0.76-1.46) 09/12/18 17:58 Urine Color Yellow (Yellow) 09/13/18 05:40 Urine Turbidity Slightly-cloudy (Clear) 09/13/18 05:40 Urine pH 7.0 (5.0-7.0) 09/13/18 05:40 Ur Specific [place] 1.008 (1.003-1.030) 09/13/18 05:40 Urine Protein <15 mg/dl mg/dL (Negative) 09/13/18 05:40 Urine Glucose (UA) Neg mg/dL (Negative) 09/13/18 05:40 Urine Ketones Neg mg/dL (Negative) 09/13/18 05:40 Urine Blood Neg (Negative) 09/13/18 05:40 Urine Nitrite Neg (Negative) 09/13/18 05:40 Ur Reducing Substances Not Reportable 09/13/18 05:40 Urine Bilirubin Neg (Negative) 09/13/18 05:40 Urine Ictotest Not Reportable 09/13/18 05:40 Urine Urobilinogen 4.0 mg/dL (<2.0) 09/13/18 05:40 Ur Leukocyte Esterase Tr (Negative) 09/13/18 05:40 Urine WBC (Auto) 1.0 /HPF (0.0-6.0) 09/13/18 05:40 Urine RBC (Auto) 3.0 /HPF (0.0-6.0) 09/13/18 05:40 U Epithel Cells (Auto) 16.0 /HPF (0-13.0) H 09/13/18 05:40 Urine Bacteria (Auto) 1+ /HPF (Negative) 09/13/18 05:40 Urine Mucus Few /HPF 09/13/18 05:40 Urine HCG, Qual Negative (Negative) 09/13/18 05:40 Active Medications - Current Medications Current Medications: Generic Name Dose Route Start Last Admin Trade Name Freq PRN Reason Stop Dose Admin Acetaminophen 650 mg 09/12/18 17:36 Tylenol PO Q4H PRN Pain MILD(1-3)/Fever >100.5/BETANCOURT Albuterol 2.5 mg 09/12/18 17:36 Proventil IH Q4H PRN Shortness Of Breath Benzonatate 100 mg 09/12/18 17:34 Tessalon Perles PO Q8HR PRN Cough Carvedilol 6.25 mg 09/12/18 22:00 09/12/18 22:37 Coreg PO 6.25 mg BID IMELDA Administration Carvedilol 6.25 mg 09/13/18 22:00 Coreg PO BID IMELDA Cyclobenzaprine HCl 10 mg 09/12/18 17:34 Flexeril PO TID PRN Muscle Spasm Dexamethasone 4 mg 09/12/18 22:00 09/12/18 22:37 Decadron PO 4 mg BID IMELDA Administration Enoxaparin Sodium 40 mg 09/12/18 22:00 09/12/18 22:37 Lovenox SUB-Q 40 mg QDAY@2200 IMELDA Administration Ferrous Sulfate 325 mg 09/12/18 22:00 09/12/18 22:01 Feosol PO Not Given BID IMELDA Furosemide 20 mg 09/13/18 06:00 09/13/18 06:18 Lasix IV 20 mg BID@0600,1800 IMELDA Administration Hydrochlorothiazide 50 mg 09/12/18 18:00 09/12/18 19:02 Hctz PO 50 mg DAILY IMELDA Administration Losartan Potassium 100 mg 09/12/18 19:00 09/12/18 20:06 Cozaar PO 100 mg QDAY IMELDA Administration Ondansetron HCl 4 mg 09/12/18 17:36 Zofran IV Q8H PRN Nausea And Vomiting Sodium Chloride 10 ml 09/12/18 22:00 09/12/18 22:37 Sodium Chloride Flush Syringe 10 Ml IV 10 ml BID IMELDA Administration Sodium Chloride 10 ml 09/12/18 17:36 Sodium Chloride Flush Syringe 10 Ml IV PRN PRN LINE FLUSH
[2018-09-13] MEDS: FLEXERIL PO PRN (15:55)
[2018-09-13] MEDS: DECADRON PO SCH ×2 (18:33→22:05)
[2018-09-13] MEDS: COREG PO SCH ×2 (18:36→21:57)
[2018-09-13] MEDS: FEOSOL PO SCH ×2 (18:39→22:02)
[2018-09-13] MEDS: HCTZ PO SCH (18:39)
[2018-09-13] MEDS: COZAAR PO SCH (18:39)
--- NOTE | 2018-09-13 21:30 | Consultation ---
REASON FOR CONSULTATION: Advice and opinion regarding shortness of breath. HISTORY OF PRESENT ILLNESS: The patient is a pleasant 38-year-old -[place] female with history of hypertension, peripartum cardiomyopathy, who presents here for 2 weeks of worsening shortness of breath; no chest pain. She states she ran out of her medications. She has a primary in [place], has seen our practice in the years past. Seen in the Emergency Room. Denies any chest pain; shortness of breath is much better. No hematochezia, melena, hemoptysis, or hematemesis. No fevers, chills, nausea, or vomiting. No dysuria or polyuria. No blurred vision, headache, or rashes. PAST MEDICAL HISTORY: Peripartum cardiomyopathy, hypertension. PAST SURGICAL HISTORY: Breast reduction, bowel surgery. SOCIAL HISTORY: Nonsmoker, nondrinker. ALLERGIES: PREDNISONE. INPATIENT MEDICATIONS: Reviewed. OUTPATIENT MEDICATIONS: Reviewed. REVIEW OF SYSTEMS: As per HPI. PHYSICAL EXAMINATION: VITAL SIGNS: Blood pressure is in the 120s to 130s over 80s, afebrile. Tele reveals sinus rhythm. O2 saturation is 99%. HEENT: Sclerae are anicteric. NECK: Supple. No masses. No JVD. CHEST: Clear to auscultation bilaterally. Good air movement. CARDIOVASCULAR: Regular rhythm. S1 and S2. ABDOMEN: Soft, nontender, and nondistended. Normoactive bowel sounds heard in all 4 quadrants. No mass or bruits. EXTREMITIES: No cyanosis, clubbing, or edema. Good peripheral pulses. SKIN: Intact. No rashes. DIAGNOSTIC DATA: ECG reveals sinus rhythm, left atrial enlargement, left ventricular hypertrophy, and nonspecific ST changes. Hemoglobin is 8.5, hematocrit 29, and platelets 355. ProBNP is 2083. Troponin negative. Creatinine and potassium are normal. Urine test is negative. Chest x-ray shows mild cardiomegaly, no bony abnormalities. ASSESSMENT SUMMARY: The patient is a pleasant 38-year-old -[place] female with: 1. Acute on chronic congestive heart failure of unclear etiology. History of peripartum cardiomyopathy, 7 or 8 years ago, which apparently resolved. Continue IV Lasix, beta-blockade, and ARB therapy. She is clinically improving. Check echocardiogram. 2. Diet and lifestyle modification discussed, likely an issue of medication noncompliance. We will continue to follow. Thank you for this consultation. JOB# [id number] SBM/NTS
[2018-09-13] MEDS: SODIUM CHLORIDE FLUSH SYRINGE 10 ML IV SCH (21:59)
[2018-09-13] MEDS ORDERED: COREG PO SCH (22:00)
[2018-09-13] MEDS: LOVENOX SUB-Q SCH (22:01)
[2018-09-14 05:45] LABS: Mean Corpuscular HGB Conc 29 % (30-34); Platelet Count 341 K/mm3 (140-440)
[2018-09-14 05:47] LABS: Hematocrit 30.8 % (30.3-42.9); Hemoglobin 9.1 gm/dl (10.1-14.3); Mean Corpuscular Volume 62 fl (79-97)
[2018-09-14 05:48] LABS: Red Cell Distribution Width 21.8 % (13.2-15.2)
[2018-09-14 06:12] LABS: Calcium 9.4 mg/dL (8.4-10.2)
[2018-09-14] MEDS: LASIX IV SCH (06:28)
[2018-09-14] MEDS: SODIUM CHLORIDE FLUSH SYRINGE 10 ML IV SCH ×2 (09:47→21:21)
[2018-09-14] MEDS: COZAAR PO SCH (09:47)
[2018-09-14] MEDS: COREG PO SCH ×2 (09:48→21:19)
[2018-09-14] MEDS: HCTZ PO SCH (09:48)
[2018-09-14] MEDS: DECADRON PO SCH ×2 (09:49→21:19)
[2018-09-14] MEDS: FEOSOL PO SCH ×2 (09:49→21:19)
[2018-09-14] MEDS ORDERED: NON-FORMULARY (Losartan [Cozaar] 100 MG) PO SCH (10:00)
--- NOTE | 2018-09-14 12:16 | Progress Note ---
Assessment and Plan Pt presented with acute HFrEF. She reports h/o peripartum CMP 8 years ago which she was told resolved. She reports that she saw Dr. Clifton in our office. Echo from 06/2013 showed EF 50-55%, mild to mod LVH, impaired relaxation, trace MR, trace TR. Echo completed on this admission shows EF 30-35%, LV mild to mod dilated, septal wall hypertrophy, abnormal diastolic function, LA mod dilated, RV mildly dilated, RV systolic function mod reduced, RA mildly dilated, mod to severe MR, mod pulm HTN with RVSP 58mmHg. Optimize BPs - increase coreg. Can consider stress test as OP to r/o ischemic CMP. Likely d/c home in AM. The patient has been seen in conjunction with Dr. Kaye who agrees with the assessment and plan of care. - Patient Problems (1) Acute HFrEF (heart failure with reduced ejection fraction) Current Visit: Yes Status: Acute (2) Cardiomyopathy Current Visit: Yes Status: Chronic (3) Uncontrolled hypertension Current Visit: Yes Status: Chronic (4) Obesity Current Visit: Yes Status: Chronic (5) cardiomyopathy Current Visit: Yes Status: Chronic Plan to address problem: history of (6) Depression Current Visit: Yes Status: Chronic Qualifiers: Depression Type: unspecified Qualified Code(s): F32.9 - Major depressive disorder, single episode, unspecified Subjective Date of service: 09/14/18 Principal diagnosis: HF Interval history: pt sitting up at bedside, states she is feeling much better today. tele reviewed - in SR. Objective Last Vital Signs Temp 98.0 F 09/14/18 09:53 Pulse 76 09/14/18 09:53 Resp 18 09/14/18 09:53 BP 155/105 09/14/18 09:53 Pulse Ox 100 09/14/18 09:53 - Physical Examination General: No Apparent Distress HEENT: Positive: PERRL, Normocephaly, Mucus Membranes Moist Neck: Positive: neck supple, trachea midline Cardiac: Positive: Reg Rate and Rhythm, S1/S2 Lungs: Positive: Decreased Breath Sounds Neuro: Positive: Grossly Intact Abdomen: Positive: Soft. Negative: Tender Skin: Negative: Rash Musculoskeletal: No Pain Extremities: Present: edema (trace BLE) - Labs and Meds CBC 09/14/18 Range/Units 05:23 WBC 7.2 (4.5-11.0) K/mm3 RBC 5.00 (3.65-5.03) M/mm3 Hgb 9.1 L (10.1-14.3) gm/dl Hct 30.8 (30.3-42.9) % Plt Count 341 (140-440) K/mm3 Comprehensive Metabolic Panel 09/14/18 Range/Units 05:23 Sodium 138 (137-145) mmol/L Potassium 4.3 (3.6-5.0) mmol/L Chloride 99.3 (98-107) mmol/L Carbon Dioxide 26 (22-30) mmol/L BUN 20 H (7-17) mg/dL Creatinine 1.4 H (0.7-1.2) mg/dL Glucose 132 H (65-100) mg/dL Calcium 9.4 (8.4-10.2) mg/dL - Imaging and Cardiology EKG: report reviewed, image reviewed Echo: report reviewed - Telemetry EKG Rhythm: Sinus Rhythm
[2018-09-14] MEDS ORDERED: COREG PO SCH (12:24)
[2018-09-14] MEDS: FLEXERIL PO PRN (15:50)
--- NOTE | 2018-09-14 16:22 | Progress Note ---
Assessment and Plan Assessment and plan: 38 YO Female with MO, HTN, Cardiomyopathy, Bronchitis presents to ED for evaluation. Pt states that she has experienced shortness of breath over the past 2 weeks, with progressively worsening symptoms over the same time frame. Pt acknowledges Orthopnea/PND, Decreased exercise tolerance, lower extremitiy edema, Dypsnea on exertion, and dypsnea at rest. Pt also acknowledges medication noncompliance over the past 2 weeks. Pt also acknowledges feeling depressed, helpless, and hopeless. Pt is tearful but consolable. Pt denies SI/HI or Plan. Pt acknowledges feeling frustrated with her health. Pt transported to [facility] ED via private vehicle. Pt seen and evaluated in ED and found to have symptoms consistent with CHF, Depression, and Symptomatic Anemia. Cardiology consulted in ED. Pt admitted to telemetry and initiated on CHF protocol. No prior admissions for review. All listed medication reconciled at time of admission. Patient HX gestational cardiomyopathy. * Patient reports that due to insurance issues she ran out of her medication this has been rectified * Patient was treated with IV Lasix which was held today due to noted worsening of renal function test. She is normally on hydrochlorothiazide obstipation. * Cardiology value that the patient: h/o peripartum CMP 8 years ago which she was told resolved.... Echo from 06/2013 showed EF 50-55%, mild to mod LVH, impaired relaxation, trace MR, trace TR. Echo completed on this admission shows EF 30-35%, LV mild to mod dilated, septal wall hypertrophy, abnormal diastolic function, LA mod dilated, RV mildly dilated, RV systolic function mod reduced, RA mildly dilated, mod to severe MR, mod pulm HTN with RVSP 58mmHg. Optimize BPs - increase coreg. Can consider stress test as OP to r/o ischemic CMP. Likely d/c home in AM. * To monitor patient till a.m. and discharge in a.m. with outpatient stress test to rule out ischemic cardiomyopathy Acute on chronic systolic congestive heart failure with exacerbation Iron deficiency anemia Morbid obesity with BMI of 46.3: weight loss counseling provided Depression Secondary to ongoing divorce Hypertension Acute kidney injury secondary to visible to nephropathy DVT and GI prophylaxis Plan Continue supportive care Increase Coreg as recommended by Cardiology Hold lasix and check renal function in am Awaiting Psych eval Daily weight Anticipate discharge in am dvt/gi PROPHY History Interval history: Patient seen and examined this morning reports remarkable improvement in symptoms. Denies any chest pain nausea vomiting or diarrhea. Still reports harry e depression but no suicidal or homicidal ideation. This reported by nursing staff Hospitalist Physical - Physical exam Narrative exam: VITAL SIGNS: Reviewed. GENERAL: The patient appeared well nourished and normally developed, morbidly obese Vital signs as documented. HEAD: No signs of head trauma. EYES: Pupils are equal. Extraocular motions intact. EARS: Hearing grossly intact. MOUTH: Oropharynx is normal. NECK: No adenopathy, no JVD. CHEST: Chest with clear breath sounds bilaterally. No wheezes, rales, or rhonchi. CARDIAC: Regular rate and rhythm. S1 and S2, without murmurs, gallops, or rubs. VASCULAR: No Edema. Peripheral pulses normal and equal in all extremities. ABDOMEN: Soft, non tender and non distended. No rebound or guarding, and no masses palpated. Bowel Sounds normal. MUSCULOSKELETAL: Good range of motion of all major joints. Extremities without clubbing, cyanosis or edema. NEUROLOGIC EXAM: Alert and oriented x 3 No focal sensory or strength deficits. Speech normal. Follows commands. PSYCHIATRIC: Mood normal. SKIN: No rash or lesions. - Constitutional Vitals: Temp Pulse Resp BP Pulse Ox 98.0 F 73 18 128/81 100 09/14/18 09:53 09/14/18 13:27 09/14/18 13:27 09/14/18 13:27 09/14/18 09:53 General appearance: Present: mild distress, obese Results - Labs CBC & Chem 7: 09/14/18 05:23 09/14/18 05:23 Labs: Laboratory Last Values WBC 7.2 K/mm3 (4.5-11.0) 09/14/18 05:23 RBC 5.00 M/mm3 (3.65-5.03) 09/14/18 05:23 Hgb 9.1 gm/dl (10.1-14.3) L 09/14/18 05:23 Hct 30.8 % (30.3-42.9) 09/14/18 05:23 MCV 62 fl (79-97) L 09/14/18 05:23 MCH 18 pg (28-32) L 09/14/18 05:23 MCHC 29 % (30-34) L 09/14/18 05:23 RDW 21.8 % (13.2-15.2) H 09/14/18 05:23 Plt Count 341 K/mm3 (140-440) 09/14/18 05:23 Lymph % (Auto) 23.1 % (13.4-35.0) 09/12/18 15:04 [place] % (Auto) 7.3 % (0.0-7.3) 09/12/18 15:04 Eos % (Auto) 3.1 % (0.0-4.3) 09/12/18 15:04 Baso % (Auto) 1.2 % (0.0-1.8) 09/12/18 15:04 Lymph # 1.4 K/mm3 (1.2-5.4) 09/12/18 15:04 Price # 0.4 K/mm3 (0.0-0.8) 09/12/18 15:04 Eos # 0.2 K/mm3 (0.0-0.4) 09/12/18 15:04 Baso # 0.1 K/mm3 (0.0-0.1) 09/12/18 15:04 Seg Neutrophils % 65.3 % (40.0-70.0) 09/12/18 15:04 Seg Neutrophils # 3.9 K/mm3 (1.8-7.7) 09/12/18 15:04 Sodium 138 mmol/L (137-145) 09/14/18 05:23 Potassium 4.3 mmol/L (3.6-5.0) 09/14/18 05:23 Chloride 99.3 mmol/L (98-107) 09/14/18 05:23 Carbon Dioxide 26 mmol/L (22-30) 09/14/18 05:23 Anion Gap 17 mmol/L 09/14/18 05:23 BUN 20 mg/dL (7-17) H 09/14/18 05:23 Creatinine 1.4 mg/dL (0.7-1.2) H 09/14/18 05:23 Estimated GFR 50 ml/min 09/14/18 05:23 BUN/Creatinine Ratio 14 % 09/14/18 05:23 Glucose 132 mg/dL (65-100) H 09/14/18 05:23 Calcium 9.4 mg/dL (8.4-10.2) 09/14/18 05:23 Magnesium 1.70 mg/dL (1.7-2.3) 09/12/18 17:58 Total Bilirubin 0.40 mg/dL (0.1-1.2) 09/12/18 15:04 AST 20 units/L (5-40) 09/12/18 15:04 ALT 23 units/L (7-56) 09/12/18 15:04 Alkaline Phosphatase 44 units/L (35-129) 09/12/18 15:04 Troponin T < 0.010 ng/mL (0.00-0.029) 09/12/18 15:04 NT-Pro-B Natriuret Pep 2083 pg/mL (0-450) H 09/12/18 15:04 Total Protein 6.5 g/dL (6.3-8.2) 09/12/18 15:04 Albumin 3.6 g/dL (3.9-5) L 09/12/18 15:04 Albumin/Globulin Ratio 1.2 % 09/12/18 15:04 TSH 0.852 mlU/mL (0.270-4.200) 09/12/18 17:58 Free T4 1.43 ng/dL (0.76-1.46) 09/12/18 17:58 Urine Color Yellow (Yellow) 09/13/18 05:40 Urine Turbidity Slightly-cloudy (Clear) 09/13/18 05:40 Urine pH 7.0 (5.0-7.0) 09/13/18 05:40 Ur Specific [place] 1.008 (1.003-1.030) 09/13/18 05:40 Urine Protein <15 mg/dl mg/dL (Negative) 09/13/18 05:40 Urine Glucose (UA) Neg mg/dL (Negative) 09/13/18 05:40 Urine Ketones Neg mg/dL (Negative) 09/13/18 05:40 Urine Blood Neg (Negative) 09/13/18 05:40 Urine Nitrite Neg (Negative) 09/13/18 05:40 Ur Reducing Substances Not Reportable 09/13/18 05:40 Urine Bilirubin Neg (Negative) 09/13/18 05:40 Urine Ictotest Not Reportable 09/13/18 05:40 Urine Urobilinogen 4.0 mg/dL (<2.0) 09/13/18 05:40 Ur Leukocyte Esterase Tr (Negative) 09/13/18 05:40 Urine WBC (Auto) 1.0 /HPF (0.0-6.0) 09/13/18 05:40 Urine RBC (Auto) 3.0 /HPF (0.0-6.0) 09/13/18 05:40 U Epithel Cells (Auto) 16.0 /HPF (0-13.0) H 09/13/18 05:40 Urine Bacteria (Auto) 1+ /HPF (Negative) 09/13/18 05:40 Urine Mucus Few /HPF 09/13/18 05:40 Urine HCG, Qual Negative (Negative) 09/13/18 05:40 Active Medications - Current Medications Current Medications: Generic Name Dose Route Start Last Admin Trade Name Freq PRN Reason Stop Dose Admin Acetaminophen 650 mg 09/12/18 17:36 Tylenol PO Q4H PRN Pain MILD(1-3)/Fever >100.5/BETANCOURT Albuterol 2.5 mg 09/12/18 17:36 Proventil IH Q4H PRN Shortness Of Breath Benzonatate 100 mg 09/12/18 17:34 09/13/18 15:55 Tessalon Perles PO 100 mg Q8HR PRN Administration Cough Carvedilol 12.5 mg 09/14/18 22:00 Coreg PO BID IMELDA Cyclobenzaprine HCl 10 mg 09/12/18 17:34 09/14/18 15:50 Flexeril PO 10 mg TID PRN Administration Muscle Spasm Dexamethasone 4 mg 09/12/18 22:00 09/14/18 09:49 Decadron PO 4 mg BID IMELDA Administration Enoxaparin Sodium 40 mg 09/12/18 22:00 09/13/18 22:01 Lovenox SUB-Q Not Given QDAY@2200 IMELDA Ferrous Sulfate 325 mg 09/12/18 22:00 09/14/18 09:49 Feosol PO 325 mg BID IMELDA Administration Hydrochlorothiazide 50 mg 09/12/18 18:00 09/14/18 09:48 Hctz PO 50 mg DAILY IMELDA Administration Losartan Potassium 100 mg 09/12/18 19:00 09/14/18 09:47 Cozaar PO 100 mg QDAY IMELDA Administration Ondansetron HCl 4 mg 09/12/18 17:36 Zofran IV Q8H PRN Nausea And Vomiting Sodium Chloride 10 ml 09/12/18 22:00 09/14/18 09:47 Sodium Chloride Flush Syringe 10 Ml IV 10 ml BID IMELDA Administration Sodium Chloride 10 ml 09/12/18 17:36 09/13/18 18:41 Sodium Chloride Flush Syringe 10 Ml IV 10 ml PRN PRN Administration LINE FLUSH
[2018-09-14] MEDS: LOVENOX SUB-Q SCH ×2 (21:19→21:23)
[2018-09-14] MEDS ORDERED: MILK OF MAGNESIA PO PRN (23:10)
[2018-09-15 08:18] LABS: BUN/Creatinine Ratio 21; Blood Urea Nitrogen 25 mg/dL (7-17); Calcium 9.1 mg/dL (8.4-10.2); Hemolysis Index 2
[2018-09-15] MEDS: SODIUM CHLORIDE FLUSH SYRINGE 10 ML IV SCH ×2 (10:10→10:11)
[2018-09-15] MEDS: DECADRON PO SCH (10:10)
[2018-09-15] MEDS: COZAAR PO SCH (10:10)
[2018-09-15] MEDS: FEOSOL PO SCH (10:10)
[2018-09-15] MEDS: HCTZ PO SCH (10:10)
[2018-09-15] MEDS: COREG PO SCH (10:10)
--- NOTE | 2018-09-15 11:13 | Progress Note ---
Assessment and Plan Currently stable cardiac status. Pt may discharge home from cardiology standpoint on current cardiac regimen. Can consider stress test as OP to r/o ischemic CMP. Follow up in our [place] office with Dr. Kaye on 09/17/2018 @ 2:15PM. The patient has been seen in conjunction with Dr. Kaye who agrees with the as sessment and plan of care. - Patient Problems (1) Acute HFrEF (heart failure with reduced ejection fraction) Current Visit: Yes Status: Acute (2) Cardiomyopathy Current Visit: Yes Status: Chronic (3) Uncontrolled hypertension Current Visit: Yes Status: Chronic (4) Obesity Current Visit: Yes Status: Chronic (5) cardiomyopathy Current Visit: Yes Status: Chronic (6) Depression Current Visit: Yes Status: Chronic Qualifiers: Depression Type: unspecified Qualified Code(s): F32.9 - Major depressive disorder, single episode, unspecified Subjective Date of service: 09/15/18 Principal diagnosis: HF Interval history: pt sitting up at bedside, states she is feeling much better today. tele reviewed - in SR. Objective Last Vital Signs Temp 98.4 F 09/15/18 07:23 Pulse 65 09/15/18 10:10 Resp 16 09/15/18 07:23 BP 118/81 09/15/18 07:23 Pulse Ox 100 09/15/18 09:56 - Physical Examination General: No Apparent Distress HEENT: Positive: PERRL, Normocephaly, Mucus Membranes Moist Neck: Positive: neck supple, trachea midline Cardiac: Positive: Reg Rate and Rhythm, S1/S2 Lungs: Positive: Decreased Breath Sounds Neuro: Positive: Grossly Intact Abdomen: Positive: Soft. Negative: Tender Skin: Negative: Rash Musculoskeletal: No Pain Extremities: Present: edema (trace BLE) - Labs and Meds Comprehensive Metabolic Panel 09/15/18 Range/Units 06:57 Sodium 140 (137-145) mmol/L Potassium 4.5 (3.6-5.0) mmol/L Chloride 100.5 (98-107) mmol/L Carbon Dioxide 25 (22-30) mmol/L BUN 25 H (7-17) mg/dL Creatinine 1.2 (0.7-1.2) mg/dL Glucose 125 H (65-100) mg/dL Calcium 9.1 (8.4-10.2) mg/dL - Imaging and Cardiology EKG: report reviewed, image reviewed Echo: report reviewed - Telemetry EKG Rhythm: Sinus Rhythm
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
--- NOTE | 2018-09-15 12:21 | Discharge Summary ---
Providers - Providers Date of Admission: 09/12/18 17:36 Date of discharge: 09/15/18 Attending physician: THANG KAYE 09/12/18 17:36 Consult to Physician [CONS] Routine Comment: DR Cinthia BANERJEE SAW PT IN ER [id number] Consulting Provider: CHRISTIANO HILLMAN Physician Instructions: Reason For Exam: CHF 09/13/18 08:00 Consult to Mental Health [CONS] Routine Reason For Exam: Depressed Mood Place consult to:: psych Notified:: ASHLEY Phone number called:: [phone] Was contact made?: Yes If yes, spoke with:: ASHLEY Time called:: 13:37 Primary care physician: CUSTOMER SUPPORT REPRESENTATIVE Hospitalization Condition: Stable Hospital course: Patient is a 38 yo woman with MO, HTN and Cardiomyopathy who presented with SOB. * Echo from 06/2013 showed EF 50-55%, mild to mod LVH, impaired relaxation, trace MR, trace TR. Echo completed on this admission shows EF 30-35%, LV mild to mod dilated, septal wall hypertrophy, abnormal diastolic function, LA mod dilated, RV mildly dilated, RV systolic function mod reduced, RA mildly dilated, mod to severe MR, mod pulm HTN with RVSP 58mmHg. Optimize BPs - increase coreg. Acute on chronic systolic congestive heart failure with exacerbation, ok by Cardiac to discharge Iron deficiency anemia Morbid obesity with BMI of 46.3: weight loss counseling provided Hypertension Acute kidney injury secondary to visible to nephropathy, off lasix, restart lasix at lower dose MDD. Adjustment DO; outpatient referral given by Psych team Disposition: DC-01 TO HOME OR SELFCARE Time spent for discharge: 35 minutes Core Measure Documentation - Palliative Care Palliative Care/ Comfort Measures: Not Applicable - Core Measures Any of the following diagnoses?: heart failure - VTE Discharge Requirements Deep Vein Thrombosis/Pulmonary Embolism Present on Admission: No Has pt received <5 days of overlap therapy or INR<2.0: No Anticoagulant overlap therapy prescribed at discharge: No Contraindication No Overlap Therapy order at DC: Not Indicated - Heart Failure Discharge Requirements LOURDES/ARB for LVSD if EF <40%: Yes Beta shay at discharge: Yes Exam - Physical Exam Narrative exam: GEN: WDWN, NAD, Awake, Alert, Orientated HEENT: NCAT, EOMI, PERRL, OP Clear NECK: supple, no adenopathy, no thyromegaly, no JVD CVS/HEART: RRR, normal S1S2, pulses present bilaterally CHEST/LUNGS: CTA B, Symmetrical chest expansion, good air entry bilaterally GI/Abdomen: soft, NTND, good bowel sounds, no guarding or rebound /Bladder: no suprapubic tenderness, no CVA or paraspinal tenderness EXT/Skin: no c/c/e, no obvious rash MSK: FROM x 4 Neuro: CN 2-12 grossly intact, no new focal deficits Psych: calm - Constitutional Vitals: Temp Pulse Resp BP Pulse Ox 98.4 F 65 16 118/81 100 09/15/18 07:23 09/15/18 10:10 09/15/18 07:23 09/15/18 07:23 09/15/18 09:56 Plan Activity: other (no strenous activity until cleared by Cardiology) Diet: low salt Follow up with: [facility] [Outside] - 7 Days PRIMARY CARE, [Primary Care Provider] - 7 Days LUCA SANTIAGO MD [Staff Physician] - 09/17/18 2:15 am Prescriptions: Carvedilol [Coreg] 12.5 mg PO BID #60 tablet Losartan [Cozaar] 100 mg PO QDAY #30 tablet hydroCHLOROthiazide [HCTZ] 50 mg PO DAILY #60 tablet Furosemide [Lasix] 20 mg PO QDAY #30 tablet Benzonatate [Tessalon Perles] 100 mg PO Q8HR PRN #30 capsule PRN Reason: Cough ALBUTEROL Inhaler(NF) [VENTOLIN Inhaler(NF)] 2 puff IH Q4H PRN #1 inha PRN Reason: shortness of breath wheezing
[2018-09-15 13:07] VITALS: BP 127/87
== END 2018-09-15 14:15 | disposition home or self-care (01) | DRG 291 ==
LOC: ED 14:07 → 4A 17:36
PROVIDERS: ADMIT Internal Medicine; ATTEND Internal Medicine
DX: I11.0 Hypertensive heart disease with heart failure (principal); O90.3 Peripartum cardiomyopathy; I50.23 Acute on chronic systolic (congestive) heart failure; Z68.42 Body mass index [BMI] 45.0-49.9, adult; N02.8 Recurrent and persistent hematuria with other morphologic changes; N17.9 Acute kidney failure, unspecified; D50.9 Iron deficiency anemia, unspecified; F32.9 Major depressive disorder, single episode, unspecified; I16.1 Hypertensive emergency; I27.20 Pulmonary hypertension, unspecified; F43.20 Adjustment disorder, unspecified; E66.01 Morbid (severe) obesity due to excess calories; Z82.49 Family history of ischemic heart disease and other diseases of the circulatory system; Z88.8 Allergy status to other drugs, medicaments and biological substances; Z79.51 Long term (current) use of inhaled steroids; Z79.899 Other long term (current) drug therapy; Z71.3 Dietary counseling and surveillance
CPT/HCPCS: 36415; 71046; 80048; 80053; 81001; 81025; 82962; 83735; 83880; 84439; 84443; 84484; 85025; 85027; 93005; 93010; 93306; 96374; G0378; J1650; J1940; J2405; J8540